=== PATIENT | female | born 1955 | race Caucasian/White ===

== ENCOUNTER → 2016-11-30 | Day surgery (SDC) | payer BC ==
[~2016-11-30] VITALS: Ht 160 cm; Wt 104.8 kg
[~2016-11-30] MED LIST: ASPIR 8181 MG PO; METOPROLOL TART25 MG PO; NORVASC 5 MG TAB5 MG PO; PERCOCET 5-3251 EACH PO; PRAVACHOL20 MG PO; PRINIVIL10 MG PO; TYLENOL W/CODEIN1 E1 PO
[2016-11-30 09:46] LABS: HEMOGLOBIN 14.2 gm/dl (12.3-15.3); RED BLOOD COUNT 4.83 M/UL (4.00-5.10); WHITE BLOOD COUNT 7.3 K/UL (4.5-11.0)
[2016-11-30 09:54] LABS: BUN/CREATININE RATIO 24 (0-10)
== END | disposition home or self-care (01) ==
LOC: OR 08:46
PROVIDERS: Orthopaedic Surgery
PROC: 0PSJ04Z Reposition Left Radius with Internal Fixation Device, Open Approach (ICD-10-PCS; principal; 2016-11-30 11:45)
DX: S52.572A Other intraarticular fracture of lower end of left radius, initial encounter for closed fracture (principal); I10 Essential (primary) hypertension; E78.5 Hyperlipidemia, unspecified; R73.03 Prediabetes; Z79.899 Other long term (current) drug therapy
CPT/HCPCS: 36415; 73110; 76000; 80048; 81001; 82962; 85025; 93005; C1713; J0690; J2250; J3010; J7030; J7120